=== PATIENT | female | born 1995 | race Caucasian/White ===

== ENCOUNTER 2024-07-04 23:55 | Inpatient (IN) | payer OTHER, SELFPAY ==
[2024-07-04 23:58] VITALS: PULSE 95; RESP 28; O2SAT 99
[2024-07-05] VITALS (10 sets, daily range): BP systolic 118–154; BP diastolic 63–87; PULSE 82–110; RESP 16–25; TEMP 36.5–37.2; O2SAT 92–100
--- NOTE | 2024-07-05 00:05 | PD.EDRME ---
Rapid Medical Screening Exam RME Arrival date/time: 07/04/24 23:55 Chief Complaint: Nausea/Vomiting/Diarrhea Vital signs: Vital Signs Pulse Rate 95 07/04/24 23:58 Respiratory Rate 28 H 07/04/24 23:58 Pulse Oximetry (%) 99 07/04/24 23:58 Oxygen Delivery Method Room Air 07/04/24 23:58 E Narrative: N/V started today, denies abdominal pain. Hx type 1 DM
--- NOTE | 2024-07-05 00:05 | PC.NURSE ---
Pt states she is anxious and has severe nausea. Due to Pt not staying still and continuing to vomiting I was unable to get a blood pressure and temperature at this time. Blood pressure was preformed on upper and lower arm as well as left and right calfs.
[2024-07-05] MEDS: ONDANSETRON INJ 2 MG/ML INJ 2 ML 4 MG IM (00:09)
[2024-07-05 00:35] LABS: Base Excess, Venous 1 (-3-3); O2 Saturation, Venous 91 % (96-97); PCO2, Venous 22 mmHg (36-56); PO2, Venous 49 mmHg (15-58); pH, Venous 7.57 (7.33-7.66)
[2024-07-05 00:40] LABS: Beta Hydroxybutyrate 1.1 mmol/L (<0.6)
[2024-07-05 00:45] LABS: Glucose Estimated Average 189 mg/dL (80-131); Hemoglobin A1C 8.2 % Hgb (4.8-6.0)
[2024-07-05 00:50] LABS: Alanine Aminotransferase 29 U/L (10-49); Albumin, Serum 4.7 gm/dL (3.5-5.0); Albumin/Globulin Ratio 1.8 (1.2-2.2); Alkaline Phosphatase 69 U/L (46-116); Anion Gap 14 (7-16); Aspartate Amino Transferase 29 U/L (0-34); BUN/Creatinine Ratio 14 Ratio (12-20); Blood Urea Nitrogen 11 mg/dL (9-23); Calcium 9.5 mg/dL (8.3-10.6); Calcium (Corrected) 9.5 mg/dL (8.5-10.1); Carbon Dioxide 20.5 mMol/L (20.0-31.0); Chloride 106 mMol/L (98-107); Creatinine (Component) 0.8 mg/dL (0.6-1.3); Globulin 2.6 gm/dL (2.3-3.5); Glucose 270 mg/dL (74-106); Lipase 25 U/L (12-53); Magnesium 1.7 mg/dL (1.6-2.6); Osmolality,Calculated 288 (275-295); Potassium 3.7 mMol/L (3.4-5.1); Sodium 140 mMol/L (136-145); Total Protein 7.3 gm/dL (5.7-8.2); eGFR > 60 See Note
[2024-07-05 00:57] LABS: Basophils # (Auto) 0.2 Thou/mm3 (0.0-0.2); Basophils % (Auto) 1 % (0-2.5); Eosinophils # (Auto) 0.1 Thou/mm3 (0.0-0.5); Eosinophils % (Auto) 1 % (0-10); Hematocrit 36.4 % (36.0-46.0); Hemoglobin 13.3 g/dL (12.0-16.0); Immature Granulocytes % (Auto) 0 % (0-0); Immature Granulocytes Auto 0.04 Thou/mm3 (0.00-0.00); Lymphocytes # (Auto) 2.4 Thou/mm3 (1.0-4.8); Lymphocytes % (Auto) 16 % (10-50); Mean Corpuscular HGB Conc 36.5 g/dl (31.0-37.0); Mean Corpuscular Volume 93 fL (80-100); Monocytes # (Auto) 0.9 Thou/mm3 (0.0-0.8); Monocytes % (Auto) 6 % (0-12); Neutrophils # (Auto) 10.9 Thou/mm3 (1.8-7.7); Neutrophils % (Auto) 76 % (37-80); Nucleated Red Blood Cell % 0 /100 WBC (0); Platelet Count 367 Thou/mm3 (140-440); RDW Standard Deviation 42.6 fL (36.4-46.3); Red Blood Count 3.91 Miln/mm3 (4.00-5.20); White Blood Count 14.5 Thou/mm3 (3.6-11.0)
--- NOTE | 2024-07-05 01:02 | PD.EDNV ---
Nausea/Vomit./Diarrhea-RME/HPI General Chief complaint: Nausea/Vomiting/Diarrhea Stated complaint: VOMITING Time Seen by Provider: 07/05/24 00:57 Arrival date/time: 07/04/24 23:55 RME / HPI RME / HPI Narrative: N/V started today, denies abdominal pain. Hx type [address] Phan?s Main ED Evaluation: 28yo female with a history of DMI presents to the ED for a chief complaint of N/V. Patient states she's had significant N/V tonight with brownish-red emesis. She denies any abdominal pain, back pain, fever, chills, diarrhea, chest pain, shortness of breath, dysuria, melena or any other associated symptoms. NKA. Related Data Home Medications ?Medication ?Instructions ?Recorded ?Confirmed Insulin Lispro,Human Rec.anlog ##15 12/19/15 (Humalog) insulin glargine 100 unit/mL (3 ##18 12/19/15 mL) subcutaneous pen (Lantus Solostar U-100 Insulin) Allergies Allergy/AdvReac Type Severity Reaction Status Date / Time NKA* Allergy Uncoded 12/19/15 15:17 Review of Systems Review of Systems Systems Reviewed: All systems reviewed, normal except as documented Past Medical History Social History SMOKING STATUS: Current some day smoker ED Exam Narrative Physical exam: GENERAL APPEARANCE: alert and oriented x 4, well-developed, well-nourished, no acute distress VITALS: All vitals were reviewed and the pulse ox is 99% on room air, which is normal according to my interpretation. HEENT: Normocephalic, atraumatic; pupils equal, round, reactive to light; EOMI; mucous membranes pink, moist; oropharynx clear NECK: Supple LUNGS: CTABL; no wheezes, no rales, no rhonchi HEART: Regular rate, regular rhythm; normal S1, S2; no murmurs ABDOMEN: non distended; soft, generalized [id number] tenderness, no guarding, no rebound BACK: no CVA tenderness EXTREMITIES: atraumatic; no edema NEUROLOGIC: awake; alert and oriented x4; cranial nerves II-XII grossly intact; no focal sensory or motor deficits PSYCHIATRIC: appropriate mood and affect SKIN: warm, dry, normal color; no rashes Course Quality Measures none Orders Category Date Time Status CT Screening NOW Care 07/05/24 02:15 Active EKG (ED ONLY) *Do not use* NOW Care 07/05/24 01:04 Completed Miscellaneous Nursing Order NOW Care 07/05/24 02:15 Active NPO STAT Care 07/05/24 04:[address] abdomen pelvis w con Stat Exams 07/05/24 02:15 Ordered EKG (ED Only) Stat Exams 07/05/24 01:04 Draft XR chest 1V portable Stat Exams 07/05/24 01:06 Taken Beta Hydroxybutyrate Stat Lab 07/05/24 00:13 Completed CBC Stat Lab 07/05/24 00:13 Completed CMP [Comprehensive Metabolic Panel] Stat Lab 07/05/24 00:13 Completed Drug Screen,Urine Stat Lab 07/05/24 03:46 Ordered HCG Qualitative,Urine Stat Lab 07/05/24 00:04 Ordered HCG,Qualitative Serum Stat Lab 07/05/24 05:12 Ordered Hemoglobin A1C [Glycohemoglobin w (eAG)] Stat Lab 07/05/24 00:13 Completed Lipase Stat Lab 07/05/24 00:13 Completed Magnesium Stat Lab 07/05/24 00:13 Completed UA [Urinalysis] Stat Lab 07/05/24 00:04 Ordered VBG [Venous Blood Gas] Stat Lab 07/05/24 00:13 Completed Haloperidol Lactate [Haldol Inj] Med 07/05/24 01:03 Discontinued 2.5 mg IV Q6HR PRN Haloperidol Lactate [Haldol Inj] Med 07/05/24 03:04 Discontinued 2.5 mg IV X1 ONE Haloperidol Lactate [Haldol Inj] Med 07/05/24 03:07 Discontinued 2.5 mg IV X1 ONE LORazepam [Ativan Inj] Med 07/05/24 01:03 Discontinued 2 mg IVP X1 ONE Ondansetron Inj [Zofran Inj] Med 07/05/24 00:03 Discontinued 4 mg IM X1 ONE Pantoprazole Inj [Protonix Inj] Med 07/05/24 03:58 Discontinued 80 mg IVP X1 ONE Pantoprazole/Ns 80Mg IV Premix [Protonix/NS 80mg IV Med 07/05/24 04:15 Active Premix] 80 mg in 100 ml IV Q10H Pantoprazole/Ns 80Mg IV Premix [Protonix/NS 80mg IV Med 07/05/24 14:15 Pending Premix] 80 mg in 100 ml IV Q10H Sodium Chloride 0.9% 1000 ml [Ns] 1,000 ml Med 07/05/24 02:16 Discontinued IV 999 mls/hr Sodium Chloride 0.9% 1000 ml [Ns] 1,000 ml Med 07/05/24 02:16 Discontinued IV 999 mls/hr Vital Signs Vital signs: Vital Signs Pulse Rate 95 07/04/24 23:58 Respiratory Rate 28 H 07/04/24 23:58 Pulse Oximetry (%) 99 07/04/24 23:58 Oxygen Delivery Method Room Air 07/04/24 23:58 Nausea/Vomiting/Diarrhea MDM Narrative MDM Narrative:: Scribe Attestation: 07/05/24 Jolene Quiroz am scribing for and in the presence of Dr. Phan. Gastric occult is positive. Patient data External records reviewed:: [facility] previous records (Per chart review, patient has no previous ED visits or admissions to this facility.) Clinical information provided by:: patient Social determinants that could affect healthcare access:: none Patient has the following chronic illnesses:: DM How is presenting disease/condition affected by chronic disease/condition?: caused by Evaluation data The following diagnostics were reviewed and interpreted by me:: lab results, radiology exam(s) and EKG tracing(s) Lab and/or radiology exams considered but not ordered:: none Interpretation Summary: WBC 14.5, VBG shows a low CO2 of 22, Glucose is 270, Magnesium 1.7, Lipase is normal, Beta Hydroxybutyrate is 1.1, according to my interpretation. CXR shows normal cardiac silhouette, normal sharp diaphragmatic edge, no infiltrates, normal costophrenic angles, according to my interpretation. EKG done at 0155, NSR, rate of 60, normal axis, no ectopy, no acute ischemia, according to my interpretation. Medications / Prescriptions Medications / Prescriptions considered but not ordered:: none Medication administrations:: Medication Administration History Pantoprazole Sodium (Protonix/Ns 80mg Iv Premix) 80 mg in 100 mls @ 10 mls/hr IV Q10H NASIR Stop: 07/08/24 02:14 Pantoprazole Sodium (Protonix/Ns 80mg Iv Premix) 80 mg in 100 mls @ 10 mls/hr IV Q10H NASIR Stop: 07/05/24 14:14 Last Admin: 07/05/24 04:24 Dose: 10 mls/hr Documented By: KRISTEN Discontinued Medications Haloperidol Lactate (Haloperidol Lact Inj 5 Mg/Ml Vial) 2.5 mg IV Q6HR PRN PRN Reason: Intractable vomiting Stop: 07/10/24 01:02 Last Admin: 07/05/24 01:12 Dose: 2.5 mg Documented By: KRISTEN Haloperidol Lactate (Haloperidol Lact Inj 5 Mg/Ml Vial) 2.5 mg IV X1 ONE Stop: 07/05/24 03:05 Last Admin: 07/05/24 03:18 Dose: 2.5 mg Documented By: VIRIDIANA Haloperidol Lactate (Haloperidol Lact Inj 5 Mg/Ml Vial) 2.5 mg IV X1 ONE Stop: 07/05/24 03:08 Last Admin: 07/05/24 03:10 Dose: Not Given Documented By: VIRIDIANA Non-Admin Reason: Duplicate Medication on eMAR Sodium Chloride (Ns) 1,000 mls @ 999 mls/hr IV .Q1H1M ONE Stop: 07/05/24 03:16 Last Infusion: 07/05/24 04:37 Dose: Infused Documented By: Admin: 07/05/24 02:58 Dose: 999 mls/hr Documented By: KRISTEN Sodium Chloride (Ns) 1,000 mls @ 999 mls/hr IV .Q1H1M ONE Stop: 07/05/24 03:16 Last Infusion: 07/05/24 04:37 Dose: Infused Documented By: Admin: 07/05/24 02:59 Dose: 999 mls/hr Documented By: KRISTEN Lorazepam (Lorazepam 2 Mg/Ml Vial) 2 mg IVP X1 ONE Stop: 07/05/24 01:04 Last Admin: 07/05/24 01:12 Dose: 2 mg Documented By: KRISTEN Ondansetron HCl (Ondansetron Inj 2 Mg/Ml Inj 2 Ml) 4 mg IM X1 ONE; Protocol Stop: 07/05/24 00:04 Last Admin: 07/05/24 00:09 Dose: 4 mg Documented By: DAVID Pantoprazole Sodium (Pantoprazole Inj 40 Mg Vial) 80 mg IVP X1 ONE Stop: 07/05/24 03:59 Last Admin: 07/05/24 04:24 Dose: 80 mg Documented By: KRISTEN see above Consultations Consultation(s) initiated? (list below): No Diagnosis Nausea Differential Diagnosis: other (PUD, gastritis, gastroparesis) Most likely diagnosis given after review of the tests above:: hematemesis Admission Indicated Admission indicated?: not indicated Admission Request Was there a request for admission?: No Disposition Plan Disposition Plan: other (specify) (Signed out to Dr. Oro at [address] abdomen pelvis.) Discharge Plan Prescriptions/Referrals Prescriptions/Med Rec: No Action insulin glargine [Lantus Solostar U-100 Insulin] 3 ML insulin pen Qty: 18 Insulin Lispro,Human Rec.anlog (Humalog) 100 U/ML INSULN.PEN Qty: 15 Referrals: Pat Obregon MD [Primary Care Provider] - In 1 week Problem List Clinical Impression: Hematemesis Patient/Caregiver Discharge Instructions Print Language: [place] Islander
--- NOTE | 2024-07-05 01:04 | EKG_ITS ---
[facility] Test Date: 2024-07-05 Pat Name: ADE BOWERS Department: Room: - Gender: Female Lathe Set Up Person: : 1995 Requested By: Kan Garcia Order Number: [id number] Reading MD: Kan Garcia Measurements Intervals [place] Rate: 60 P: 45 NM: 143 QRS: 65 QRSD: 102 T: 44 QT: 427 QTc: 427 Interpretive Statements SINUS RHYTHM WITH MARKED SINUS ARRHYTHMIA No previous ECG available for comparison /store/S0/[id number]/ecg/[id number].pdf
--- NOTE | 2024-07-05 01:06 | XR_ITS ---
Examination: AP chest single view TECHNIQUE: AP portable upright chest single view Date and time: July 05, 2024 0139 hours INDICATIONS: Nausea vomiting tonight FINDINGS: No aspiration pneumonia. Normal heart size Intact osseous structures IMPRESSION: Negative for aspiration pneumonia
[2024-07-05] MEDS: LORazepam 2 MG/ML VIAL IVP (01:12)
[2024-07-05] MEDS: HALOPERIDOL LACT INJ 5 MG/ML VIAL 2.5 MG IV ×2 (01:12→03:18)
--- NOTE | 2024-07-05 02:15 | XR_ITS ---
Examination: CT abdomen with intravenous contrast CT pelvis with intravenous contrast 2-D coronal reconstructions 2-D sagittal reconstructions Date and time of exam:July 05, 2024 0727 hours Comparison February 19, 2014 INDICATIONS: Mid abdominal pain and vomiting today, history acute pancreatitis. CTDI: vol (mGy) 10.6 DLP: (mGycm) 598 Technique: Multiple axial sections of the abdomen and pelvis have been obtained. 64 slice high-resolution scanner used. 3 mm axial sections have been obtained, post intravenous injection 60 cc Isovue-370 2-D sagittal, coronal reconstructions obtained. Low dose protocols were performed. One or more of the following dose reduction techniques were used; automated exposure control, adjustment of the mA and/or KV according to patient size, use of iterative reconstruction technique. Findings: No focal liver or splenic lesions No gallstones No pancreatic mass or peripancreatic edema Normal adrenal glands No renal or ureteral calculi, no hydronephrosis Aorta normal size Normal appendix No bladder mass Bilateral ovarian follicular cysts, the largest on the left side 16 mm No uterine mass Intact osseous structures Mild diffuse wall thickening involving the colon IMPRESSION: Mild diffuse nonspecific colitis pattern Consider pelvic sonography to confirm benign bilateral ovarian follicular cysts
[2024-07-05] MEDS: SODIUM CHLORIDE 0.9% 1000 ML 1,000 ML 999 ML IV ×3 (02:58→09:49)
[2024-07-05] MEDS: PANTOPRAZOLE/NS 80MG IV PREMIX 80 MG/100 ML BAG 10 MG IV ×2 (04:24→16:48)
[2024-07-05] MEDS: PANTOPRAZOLE INJ 40 MG VIAL 80 MG IVP (04:24)
[2024-07-05 06:26] LABS: HCG,Qualitative Serum Negative
[2024-07-05 06:30] LABS: Collection Type, Urine Clean Catch
--- NOTE | 2024-07-05 06:38 | EDNOTE_ITS ---
Emergency Room Addendum <Ro James - Last Filed: 07/05/24 09:16> Addendum Narrative: 0600: Care assumed from Dr. Phan, the previous shift emergency physician. Past medical, surgical, social and family history reviewed. Vitals and home medications reviewed. I will assume the care of the patient at this time, pending abdomen/pelvis CT and final disposition. Please refer to the emergency department record for history and examination from initial visit.? Physical exam by me shows patient under no acute distress at this time, she was sleeping. 28 year old female with no past medical history presents to the Emergency Department with complaint of abdominal pain, nausea, and vomiting with blood. <Moris Oro MD - Last Filed: 07/05/24 09:18> Addendum Narrative: 0600: Care assumed from Dr. Phan, the previous shift emergency physician. Past medical, surgical, social and family history reviewed. Vitals and home medications reviewed. I will assume the care of the patient at this time, pending abdomen/pelvis CT and final disposition. Please refer to the emergency department record for history and examination from initial visit.? Physical exam by me shows patient under no acute distress at this time, she was sleeping. 28 year old female with no past medical history presents to the Emergency Department with complaint of abdominal pain, nausea, and vomiting with blood. Patient had intractable nausea and vomiting and was feeling better and tried some ice chips and she immediately started vomiting again. There is reports of coffee-ground emesis prior to arrival and per staff earlier. Uncertain if this is a Mary-Hopkins but Dr. Tu JAMA was called and he will be consulting occult hospitalist admit for intractable nausea and vomiting. No patient's white count is 14.5 there is a respiratory alkalosis. Glucose is 270 be beta-hydroxybutyrate is slightly elevated at 1.1. She is not . Lipase is negative urine analysis essentially unremarkable and urine drug screen came back positive for cocaine and marijuana Because of the intractable nausea vomiting and the coffee-ground emesis patient is to be admitted. I spoke with the hospitalist Dr. Salgado and they will come down and see the patient for admission Results <Ro James - Last Filed: 07/05/24 09:16> Objective Laboratory: Laboratory Last Values WBC 14.5 Thou/mm3 (3.6-11.0) H 07/05/24 00:13 RBC 3.91 Miln/mm3 (4.00-5.20) L 07/05/24 00:13 Hgb 13.3 g/dL (12.0-16.0) 07/05/24 00:13 Hct 36.4 % (36.0-46.0) 07/05/24 00:13 MCV 93 fL (80-100) 07/05/24 00:13 MCH 34.0 pg (25.0-35.0) 07/05/24 00:13 MCHC 36.5 g/dl (31.0-37.0) 07/05/24 00:13 RDW Std Deviation 42.6 fL (36.4-46.3) 07/05/24 00:13 Plt Count 367 Thou/mm3 (140-440) 07/05/24 00:13 Neut % (Auto) 76 % (37-80) 07/05/24 00:13 Lymph % (Auto) 16 % (10-50) 07/05/24 00:13 Gillespie % (Auto) 6 % (0-12) 07/05/24 00:13 Eos % (Auto) 1 % (0-10) 07/05/24 00:13 Baso % (Auto) 1 % (0-2.5) 07/05/24 00:13 Neut # (Auto) 10.9 Thou/mm3 (1.8-7.7) H 07/05/24 00:13 Lymph # (Auto) 2.4 Thou/mm3 (1.0-4.8) 07/05/24 00:13 Gillespie # (Auto) 0.9 Thou/mm3 (0.0-0.8) H 07/05/24 00:13 Eos # (Auto) 0.1 Thou/mm3 (0.0-0.5) 07/05/24 00:13 Baso # (Auto) 0.2 Thou/mm3 (0.0-0.2) 07/05/24 00:13 Immature Gran # (Auto) 0.04 Thou/mm3 (0.00-0.00) H 07/05/24 00:13 Absolute Nucleated RBC 0.00 Thou/mm3 (0.00-0.00) 07/05/24 00:13 Immature Gran % 0 % (0-0) 07/05/24 00:13 Nucleated RBC % 0 /100 WBC (0) 07/05/24 00:13 VBG pH 7.57 (7.33-7.66) 07/05/24 00:13 VBG pCO2 22 mmHg (36-56) L 07/05/24 00:13 VBG pO2 49 mmHg (15-58) 07/05/24 00:13 VBG O2 Sat (Partha) 91 % (96-97) L 07/05/24 00:13 VBG Base Excess 1 (-3-3) 07/05/24 00:13 Sodium 140 mMol/L (136-145) 07/05/24 00:13 Potassium 3.7 mMol/L (3.4-5.1) 07/05/24 00:13 Chloride 106 mMol/L (98-107) 07/05/24 00:13 Carbon Dioxide 20.5 mMol/L (20.0-31.0) 07/05/24 00:13 Anion Gap 14 (7-16) 07/05/24 00:13 BUN 11 mg/dL (9-23) 07/05/24 00:13 Creatinine 0.8 mg/dL (0.6-1.3) 07/05/24 00:13 Estim Creat Clear Calc Not Performed. 07/05/24 00:13 eGFR > 60 See Note (60-) 07/05/24 00:13 BUN/Creatinine Ratio 14 Ratio (12-20) 07/05/24 00:13 Glucose 270 mg/dL (74-106) H 07/05/24 00:[address] Glu mg/dL 189 mg/dL (80-131) H 07/05/24 00:13 Hemoglobin A1c 8.2 % Hgb (4.8-6.0) H 07/05/24 00:13 Calculated Osmolality 288 (275-295) 07/05/24 00:13 Calcium 9.5 mg/dL (8.3-10.6) 07/05/24 00:13 Corrected Calcium 9.5 mg/dL (8.5-10.1) 07/05/24 00:13 Magnesium 1.7 mg/dL (1.6-2.6) 07/05/24 00:13 Total Bilirubin 1.0 mg/dL (0.3-1.2) 07/05/24 00:13 AST 29 U/L (0-34) 07/05/24 00:13 ALT 29 U/L (10-49) 07/05/24 00:13 Alkaline Phosphatase 69 U/L (46-116) 07/05/24 00:13 Total Protein 7.3 gm/dL (5.7-8.2) 07/05/24 00:13 Albumin 4.7 gm/dL (3.5-5.0) 07/05/24 00:13 Globulin 2.6 gm/dL (2.3-3.5) 07/05/24 00:13 Albumin/Globulin Ratio 1.8 (1.2-2.2) 07/05/24 00:13 Lipase 25 U/L (12-53) 07/05/24 00:13 Beta-Hydroxybutyrate/Acetoacetate 1.1 mmol/L (<0.6) H 07/05/24 00:13 HCG, Qual Negative 07/05/24 05:48 Urine HCG, Qual Negative 07/05/24 06:25 Urine Opiates Screen Negative (Negative) 07/05/24 06:25 Urine Fentanyl Screen Negative (Negative) 07/05/24 06:25 Ur Barbiturates Screen Negative (Negative) 07/05/24 06:25 U Amphetamin/Meth Scrn Negative (Negative) 07/05/24 06:25 U Benzodiazepines Scrn Negative (Negative) 07/05/24 06:25 U Cocaine Metab Screen Positive (Negative) A 07/05/24 06:25 U Marijuana (THC) Screen Positive (Negative) A 07/05/24 06:25 Imaging: Procedure(s): CT abdomen pelvis w con Accession Number(s): [id number] cc: Pat Obregon MD; Eugenio Sullivan MD; Kan Phan MD~ Examination: CT abdomen with intravenous contrast CT pelvis with intravenous contrast 2-D coronal reconstructions 2-D sagittal reconstructions Date and time of exam:July 05, 2024 0727 hours Comparison February 19, 2014 INDICATIONS: Mid abdominal pain and vomiting today, history acute pancreatitis. CTDI: vol (mGy) 10.6 DLP: (mGycm) 598 Technique: Multiple axial sections of the abdomen and pelvis have been obtained. 64 slice high-resolution scanner used. 3 mm axial sections have been obtained, post intravenous injection 60 cc Isovue-370 2-D sagittal, coronal reconstructions obtained. Low dose protocols were performed. One or more of the following dose reduction techniques were used; automated exposure control, adjustment of the mA and/or KV according to patient size, use of iterative reconstruction technique. Findings: No focal liver or splenic lesions No gallstones No pancreatic mass or peripancreatic edema Normal adrenal glands No renal or ureteral calculi, no hydronephrosis Aorta normal size Normal appendix No bladder mass Bilateral ovarian follicular cysts, the largest on the left side 16 mm No uterine mass Intact osseous structures Mild diffuse wall thickening involving the colon IMPRESSION: Mild diffuse nonspecific colitis pattern Consider pelvic sonography to confirm benign bilateral ovarian follicular cysts Dictated By: Eugenio Sullivan MD Procedure(s): XR chest 1V portable Accession Number(s): [id number] cc: Pat Obregon MD; Eugenio Sullivan MD; Kan Phan MD~ Examination: AP chest single view TECHNIQUE: AP portable upright chest single view Date and time: July 05, 2024 0139 hours INDICATIONS: Nausea vomiting tonight FINDINGS: No aspiration pneumonia. Normal heart size Intact osseous structures IMPRESSION: Negative for aspiration pneumonia Dictated By: Eugenio Sullivan MD <Moris Oro MD - Last Filed: 07/05/24 09:18> Objective Laboratory: Laboratory Last Values WBC 14.5 Thou/mm3 (3.6-11.0) H 07/05/24 00:13 RBC 3.91 Miln/mm3 (4.00-5.20) L 07/05/24 00:13 Hgb 13.3 g/dL (12.0-16.0) 07/05/24 00:13 Hct 36.4 % (36.0-46.0) 07/05/24 00:13 MCV 93 fL (80-100) 07/05/24 00:13 MCH 34.0 pg (25.0-35.0) 07/05/24 00:13 MCHC 36.5 g/dl (31.0-37.0) 07/05/24 00:13 RDW Std Deviation 42.6 fL (36.4-46.3) 07/05/24 00:13 Plt Count 367 Thou/mm3 (140-440) 07/05/24 00:13 Neut % (Auto) 76 % (37-80) 07/05/24 00:13 Lymph % (Auto) 16 % (10-50) 07/05/24 00:13 Gillespie % (Auto) 6 % (0-12) 07/05/24 00:13 Eos % (Auto) 1 % (0-10) 07/05/24 00:13 Baso % (Auto) 1 % (0-2.5) 07/05/24 00:13 Neut # (Auto) 10.9 Thou/mm3 (1.8-7.7) H 07/05/24 00:13 Lymph # (Auto) 2.4 Thou/mm3 (1.0-4.8) 07/05/24 00:13 Gillespie # (Auto) 0.9 Thou/mm3 (0.0-0.8) H 07/05/24 00:13 Eos # (Auto) 0.1 Thou/mm3 (0.0-0.5) 07/05/24 00:13 Baso # (Auto) 0.2 Thou/mm3 (0.0-0.2) 07/05/24 00:13 Immature Gran # (Auto) 0.04 Thou/mm3 (0.00-0.00) H 07/05/24 00:13 Absolute Nucleated RBC 0.00 Thou/mm3 (0.00-0.00) 07/05/24 00:13 Immature Gran % 0 % (0-0) 07/05/24 00:13 Nucleated RBC % 0 /100 WBC (0) 07/05/24 00:13 VBG pH 7.57 (7.33-7.66) 07/05/24 00:13 VBG pCO2 22 mmHg (36-56) L 07/05/24 00:13 VBG pO2 49 mmHg (15-58) 07/05/24 00:13 VBG O2 Sat (Partha) 91 % (96-97) L 07/05/24 00:13 VBG Base Excess 1 (-3-3) 07/05/24 00:13 Sodium 140 mMol/L (136-145) 07/05/24 00:13 Potassium 3.7 mMol/L (3.4-5.1) 07/05/24 00:13 Chloride 106 mMol/L (98-107) 07/05/24 00:13 Carbon Dioxide 20.5 mMol/L (20.0-31.0) 07/05/24 00:13 Anion Gap 14 (7-16) 07/05/24 00:13 BUN 11 mg/dL (9-23) 07/05/24 00:13 Creatinine 0.8 mg/dL (0.6-1.3) 07/05/24 00:13 Estim Creat Clear Calc Not Performed. 07/05/24 00:13 eGFR > 60 See Note (60-) 07/05/24 00:13 BUN/Creatinine Ratio 14 Ratio (12-20) 07/05/24 00:13 Glucose 270 mg/dL (74-106) H 07/05/24 00:[address] Glu mg/dL 189 mg/dL (80-131) H 07/05/24 00:13 Hemoglobin A1c 8.2 % Hgb (4.8-6.0) H 07/05/24 00:13 Calculated Osmolality 288 (275-295) 07/05/24 00:13 Calcium 9.5 mg/dL (8.3-10.6) 07/05/24 00:13 Corrected Calcium 9.5 mg/dL (8.5-10.1) 07/05/24 00:13 Magnesium 1.7 mg/dL (1.6-2.6) 07/05/24 00:13 Total Bilirubin 1.0 mg/dL (0.3-1.2) 07/05/24 00:13 AST 29 U/L (0-34) 07/05/24 00:13 ALT 29 U/L (10-49) 07/05/24 00:13 Alkaline Phosphatase 69 U/L (46-116) 07/05/24 00:13 Total Protein 7.3 gm/dL (5.7-8.2) 07/05/24 00:13 Albumin 4.7 gm/dL (3.5-5.0) 07/05/24 00:13 Globulin 2.6 gm/dL (2.3-3.5) 07/05/24 00:13 Albumin/Globulin Ratio 1.8 (1.2-2.2) 07/05/24 00:13 Lipase 25 U/L (12-53) 07/05/24 00:13 Beta-Hydroxybutyrate/Acetoacetate 1.1 mmol/L (<0.6) H 07/05/24 00:13 HCG, Qual Negative 07/05/24 05:48 Urine HCG, Qual Negative 07/05/24 06:25 Urine Opiates Screen Negative (Negative) 07/05/24 06:25 Urine Fentanyl Screen Negative (Negative) 07/05/24 06:25 Ur Barbiturates Screen Negative (Negative) 07/05/24 06:25 U Amphetamin/Meth Scrn Negative (Negative) 07/05/24 06:25 U Benzodiazepines Scrn Negative (Negative) 07/05/24 06:25 U Cocaine Metab Screen Positive (Negative) A 07/05/24 06:25 U Marijuana (THC) Screen Positive (Negative) A 07/05/24 06:25
[2024-07-05 06:49] LABS: HCG Qualitative,Urine Negative
[2024-07-05 06:54] LABS: Amphetamine/Methamp Scrn,U Negative (Negative); Barbiturate Screen,Urine Negative (Negative); Benzodiazepines Screen,Urine Negative (Negative); Benzoylecgonine Screen, Ur Positive (Negative); Fentanyl Screen,Urine Negative (Negative); Opiate Screen,Urine Negative (Negative); THC Screen,Urine Positive (Negative)
[2024-07-05 07:37] LABS: Bilirubin,Urine Negative (Negative); Blood,Urine Negative (Negative); Clarity,Urine Clear (Clear/Hazy); Color,Urine Lt-Yellow (Lt Yel-Yel); Glucose, Urine 4+ (Negative); Ketones,Urine 3+ (Negative); Leukocyte Esterase,Urine Negative (Negative); Nitrite,Urine Negative (Negative); Protein,Urine Negative (Neg - Trace); RBC,Urine 2 /hpf (0-3); Specific Gravity,Urine 1.019 (1.001-1.035); Squamous Epithelial Cell,Urine < 1 /hpf (0-5); Urobilinogen,Urine Negative mg/dL (0.0-1.0); WBC,Urine < 1 /hpf (0-5)
[2024-07-05] MEDS: ONDANSETRON INJ 2 MG/ML INJ 2 ML 4 MG IV (09:48)
--- NOTE | 2024-07-05 09:55 | ESHP_ITS ---
<Statement entered by Josh Lazar MD - 07/15/24 14:59> I reviewed above note and agree with findings and plans. I have also personally examined the patient with medicine team and went over assessment and plan with medical team including help desk internship and resident physician. Documentation for date of: 07/05/24 HPI History of Present Illness Chief complaint: vomiting History of present illness: 28-year-old female with past medical history of type 1 diabetes who presented to the ED due to nausea vomiting. Onset of symptoms 1 day ago states 1 episode contained coffee ground rest of vomiting episodes seem to be greenish bile. Patient is every day marijuana user. Of note patient is from [facility] and came here for doctors appointments and visiting. Denies fever, chills, shortness of breath, chest pain, abdominal pain, recent sick contacts. Rest of history limited as patient is actively vomiting. ED course: ED vitals: BP 127/85, HR 95, RR 28, O2 sat 99% on room air ED labs: Leukocytosis, glucose 270, A1c 8.2, beta hydroxybutyrate 1.1, negative test, UA shows plus for glucose, +3 ketones, U tox shows positive for cocaine, marijuana, CT abdomen pelvis shows Mild diffuse nonspecific colitis pattern, Consider pelvic sonography to confirm benign bilateral ovarian follicular cysts PMHx: as above SxHx: unknown Social Hx: former cigarette smoker, drinks socially, denies illicit substances, however uses THC daily Review of Systems Review of Systems Systems Reviewed: All systems reviewed, normal except as documented Narrative Review of Systems: All 12 systems reviewed and are normal unless stated in HPI Exam Vital Signs Temp Pulse Resp BP Pulse Ox O2 Del Method O2 Flow Rate 98.9 F 99 16 118/63 96 Room Air 2 07/05/24 08:03 07/05/24 08:03 07/05/24 08:03 07/05/24 08:03 07/05/24 08:03 07/05/24 08:03 07/05/24 06:49 Narrative Exam Physical Exam GENERAL: AAOx3, acute distress due to vomiting HEENT: Moist mucosa. Eyes open, symmetrical, & clear CARDIO: Heart RRR, no obvious murmurs PULM: No noted coughing/dyspnea CTA B/L, no R/W/R GI: Abdomen soft, nondistended, pain on palpation. BS+ SKIN/MSK/EXT: No wounds/rashes/edema/amputations, no pain on palpation. Pedal pulses present B/L NEURO: AAOx3, no focal neuro deficits, able to move all 4 extremities Results: Labs 07/05/24 00:13 07/05/24 00:13 Labs: Short CBC 07/05/24 Range/Units 00:13 WBC 14.5 H (3.6-11.0) Thou/mm3 Hgb 13.3 (12.0-16.0) g/dL Hct 36.4 (36.0-46.0) % Plt Count 367 (140-440) Thou/mm3 BMP 07/05/24 00:13 Sodium 140 Potassium 3.7 Chloride 106 Carbon Dioxide 20.5 BUN 11 Creatinine 0.8 Glucose 270 H Calcium 9.5 Liver Function 07/05/24 Range/Units 00:13 Total Bilirubin 1.0 (0.3-1.2) mg/dL AST 29 (0-34) U/L ALT 29 (10-49) U/L Alkaline Phosphatase 69 (46-116) U/L Albumin 4.7 (3.5-5.0) gm/dL Urine 07/05/24 Range/Units 06:25 Urine Color Lt-Yellow (Lt Yel-Yel) Urine Clarity Clear (Clear/Hazy) Urine pH 7.0 (5.0-7.0) Ur Specific [place] 1.019 (1.001-1.035) Urine Protein Negative (Neg - Trace) Urine Glucose (UA) 4+ A (Negative) ABG Interpretation ABG results: 07/05/24 00:13 VBG pH 7.57 VBG pCO2 22 L VBG pO2 49 VBG Base Excess 1 Quality Measures Quality Measures none Medications Home Medications and Allergies Home Medications ?Medication ?Instructions ?Recorded ?Confirmed ?Type clonazepam 0.5 mg tablet 0.5 mg PO HS 07/05/24 History flash glucose sensor (FreeStyle 07/05/24 07/05/24 His tory Jon 2 Sensor kit) insulin lispro 100 unit/mL 100 unit subcut PRN 5 07/05/24 History subcutaneous pen (Humalog KwikPen (U-100) Insulin) insulin pump cart,cont inf,BT 07/05/24 07/05/24 Histo ry (Omnipod Dash Pods (Gen 4) subcutaneous cartridge) sertraline 50 mg tablet 50 mg PO QDAY 07/05/2407/05 History Allergies Allergy/AdvReac Type Severity Reaction Status Date / Time NKA* Allergy Uncoded 12/19/15 15:17 Visit Medications Pantoprazole Sodium (Protonix/Ns 80mg Iv Premix) 80 mg in 100 mls @ 10 mls/hr IV Q10H NASIR Stop: 07/08/24 02:14 Pantoprazole Sodium (Protonix/Ns 80mg Iv Premix) 80 mg in 100 mls @ 10 mls/hr IV Q10H NASIR Stop: 07/05/24 14:14 Last Admin: 07/05/24 04:24 Dose: 10 mls/hr Sodium Chloride (Ns) 1,000 mls @ 999 mls/hr IV .Q1H1M ONE Stop: 07/05/24 10:33 Last Admin: 07/05/24 09:49 Dose: 999 mls/hr Discontinued Medications Haloperidol Lactate (Haloperidol Lact Inj 5 Mg/Ml Vial) 2.5 mg IV Q6HR PRN PRN Reason: Intractable vomiting Stop: 07/10/24 01:02 Last Admin: 07/05/24 01:12 Dose: 2.5 mg Haloperidol Lactate (Haloperidol Lact Inj 5 Mg/Ml Vial) 2.5 mg IV X1 ONE Stop: 07/05/24 03:05 Last Admin: 07/05/24 03:18 Dose: 2.5 mg Haloperidol Lactate (Haloperidol Lact Inj 5 Mg/Ml Vial) 2.5 mg IV X1 ONE Stop: 07/05/24 03:08 Last Admin: 07/05/24 03:10 Dose: Not Given Sodium Chloride (Ns) 1,000 mls @ 999 mls/hr IV .Q1H1M ONE Stop: 07/05/24 03:16 Last Infusion: 07/05/24 04:37 Dose: Infused Sodium Chloride (Ns) 1,000 mls @ 999 mls/hr IV .Q1H1M ONE Stop: 07/05/24 03:16 Last Infusion: 07/05/24 04:37 Dose: Infused Lorazepam (Lorazepam 2 Mg/Ml Vial) 2 mg IVP X1 ONE Stop: 07/05/24 01:04 Last Admin: 07/05/24 01:12 Dose: 2 mg Ondansetron HCl (Ondansetron Inj 2 Mg/Ml Inj 2 Ml) 4 mg IM X1 ONE; Protocol Stop: 07/05/24 00:04 Last Admin: 07/05/24 00:09 Dose: 4 mg Ondansetron HCl (Ondansetron Inj 2 Mg/Ml Inj 2 Ml) 4 mg IV X1 ONE; Protocol Stop: 07/05/24 09:34 Last Admin: 07/05/24 09:48 Dose: 4 mg Pantoprazole Sodium (Pantoprazole Inj 40 Mg Vial) 80 mg IVP X1 ONE Stop: 07/05/24 03:59 Last Admin: 07/05/24 04:24 Dose: 80 mg Assessment & Plan Plan 28-year-old female with past medical history of type 1 diabetes who presents to the ED with vomiting. Patient was admitted for intractable vomiting. #? Coffee-ground emesis #Intractable nausea and vomiting #?Cyclic vomiting syndrome Patient symptom onset was about 1 day ago, patient reports 1 episode of coffee- ground emesis followed by green bilious vomiting. Patient does use THC frequently possible etiology can include cyclic vomiting syndrome with possible tear due to continous retching Zomonty reglan did not work continues to vomit ? Benadryl + promethazine ? Scopolamine patch ? Monitor serial EKGs to monitor QTc prolongation ? Pantoprazole drip ? NPO for possible GI intervention ? IVFs running ? GI consulted, appreciate recommendations #Diabetes mellitus type 1 Last A1c: 8.2, per patient she uses 10-15 units of insulin a day on an insulin pump patient is using her own pumps insulin, patient refused to turn off ? SSI ? Hypoglycemia protocol in place #Polysubstance use patients utox is positive for cocaine and THC - consider social worker #Bilateral ovarian follicular cysts, the largest on the left side 16 mm recommended to follow up with pelvic US - follow up as outpatient Health Maintenance: Disposition: MedSurg Fluids: NS Feeding: N.p.o. Thrombo prophylaxis: SCDs Gastric Ulcer prophylaxis: Pantoprazole CODE STATUS: Full code Case discussed with my senior Dr. George and my attending Dr. Nagi Johnson MD PGY-1 LPatient examined and case discussed with the team including attending physician. Note reviewed, I agree with the care plan as documented. Ms Melendez is a 28 year old female admitted for intractable vomiting with hematemesis. Likely cyclical vomiting syndrome due to THC use, UTox screen positive for marijuana. Started on Benadryl + Promethazine, added scopolamine patch for added control.Will hold off of reglan, zofran and other QTc prolonging agents. GI consulted for UGIB, appreciate recommendations. Will keep NPO w/ meds until EGD. Please refer to the note above for further details. - Tushar George MD, PGY 2 Disclaimer: The document may contain phonetic/typographic errors due to voice recognition software. These errors are purely due to imperfections in the software program and should not be misconstrued in any way to compromise the substance of the patient's medical care during this visit. L
[2024-07-05] MEDS: METOCLOPRAMIDE INJ 5 MG/ML VIAL 2 ML 10 MG IVP (11:14)
[2024-07-05] MEDS: SCOPOLAMINE 1 MG TDSY TOP (11:17)
--- NOTE | 2024-07-05 12:06 | PC.NURSE ---
PT CONTINUES TO HAVE NAUSEA AFTER REGLAN AND SCOP PATCH. THIS RN CALLED PROVIDER WHO GAVE VERBAL TO ORDER COMPAZINE IVP. WILL ADMINISTER ONCE APPROVED BY PHARMACY. PT UPDATED.
--- NOTE | 2024-07-05 12:21 | PC.NURSE ---
WENT IN TO UPDATE PT PHARMACY NEEDS TO CLARIFY ORDER FOR NAUSEA MEDICATION. PT SITTING ON COMMODE.
[2024-07-05] MEDS: SODIUM CHLORIDE 0.9% 1000 ML 1,000 ML 100 ML IV ×2 (12:44→23:54)
[2024-07-05] MEDS: DiphenhydrAMINE INJ 50 MG/ML VIAL 25 MG IVP (14:41)
[2024-07-05] MEDS: INSULIN LISPRO (AdmeLOG) 1 UNIT/0.01 ML UNIT SC (17:43)
--- NOTE | 2024-07-05 18:20 | ESCONSULT_ITS ---
HPI Data of Consult Requesting Physician: Josh Lazar MD Primary Care Provider: Pat Obregon MD Consult Narrative Reason for consult: nausea vomiting coffee ground hematemesis History of present illness: 28 years of female presented to the emergency room with nausea vomiting and one of the vomit had coffee-ground emesis Patient is a daily marijuana user Her urine toxicology is positive for cocaine and THC Patient has a history of underlying diabetes mellitus type 1 And her beta hydroxy was 1.1 with a glucose of 270 Baseline hemoglobin 13.3 and 36.[address] scan of the abdomen pelvis done which showed diffuse colitis benign follicular ovarian cyst and a pelvic ultrasound was recommended cc:: cc: Josh Lazar MD Review of Systems Review of Systems Systems Reviewed: All systems reviewed, normal except as documented Past Medical History Surgical History OTHER SURGICAL HX: As in the history present illness Meds Home Medications and Allergies Home Medications ?Medication ?Instructions ?Recorded ?Confirmed ?Type clonazepam 0.5 mg tablet 0.5 mg PO HS 07/05/24 History flash glucose sensor (FreeStyle 07/05/24 07/05/24 His [employer] Jon 2 Sensor kit) insulin lispro 100 unit/mL 100 unit subcut PRN 5 07/05/24 History subcutaneous pen (Humalog KwikPen (U-100) Insulin) insulin pump cart,cont inf,BT 07/05/24 07/05/24 Histo ry (Omnipod Dash Pods (Gen 4) subcutaneous cartridge) sertraline 50 mg tablet 50 mg PO QDAY 07/05/2407/05 History Allergies Allergy/AdvReac Type Severity Reaction Status Date / Time NKA* Allergy Uncoded 12/19/15 15:17 Exam Vital Signs Temp Pulse Resp BP Pulse Ox O2 Del Method O2 Flow Rate 97.7 F 84 18 122/79 96 Room Air 2 07/05/24 16:00 07/05/24 16:07/05/24 16:07/05/24 16:00 07/05/24 16:00 07/05/24 16:00 07/05/24 06:49 Constitutional Comments: Alert oriented Routine Respiratory Exam Comments: Normal to auscultation Routine Abdominal Exam Comments: Soft nontender Results Labs 07/05/24 00:13 07/05/24 00:13 Labs: Short CBC 07/05/24 Range/Units 00:13 WBC 14.5 H (3.6-11.0) Thou/mm3 Hgb 13.3 (12.0-16.0) g/dL Hct 36.4 (36.0-46.0) % Plt Count 367 (140-440) Thou/mm3 BMP 07/05/24 00:13 Sodium 140 Potassium 3.7 Chloride 106 Carbon Dioxide 20.5 BUN 11 Creatinine 0.8 Glucose 270 H Calcium 9.5 Liver Function 07/05/24 Range/Units 00:13 Total Bilirubin 1.0 (0.3-1.2) mg/dL AST 29 (0-34) U/L ALT 29 (10-49) U/L Alkaline Phosphatase 69 (46-116) U/L Albumin 4.7 (3.5-5.0) gm/dL Urine 07/05/24 Range/Units 06:25 Urine Color Lt-Yellow (Lt Yel-Yel) Urine Clarity Clear (Clear/Hazy) Urine pH 7.0 (5.0-7.0) Ur Specific [place] 1.019 (1.001-1.035) Urine Protein Negative (Neg - Trace) Urine Glucose (UA) 4+ A (Negative) ABG Interpretation ABG results: 07/05/24 00:13 VBG pH 7.57 VBG pCO2 22 L VBG pO2 49 VBG Base Excess 1 Assessment and Plan Additional Assessment & Plan Additional Plan: # Coffee-ground hematemesis # Nausea vomiting # Abnormal CT scan of the abdomen and pelvis Plan Clear liquid diet if patient can tolerate that N.p.o. tomorrow at 10 AM Consent obtained for fiberoptic esophagogastroduodenoscopy with possible biopsy possible therapeutic intervention under intravenous moderate sedation scheduled for tomorrow afternoon Abnormal CT scan showing picture of colitis Most likely infectious etiology and does not appear to be a case of inflammatory bowel disease Thank you very much for the opportunity to participate in the care of this patient
[2024-07-05] MEDS: clonazePAM 0.5 MG TABLET PO (21:02)
[2024-07-06] VITALS (14 sets, daily range): BP systolic 106–165; BP diastolic 51–95; PULSE 59–98; RESP 14–23; TEMP 36.4–37.5; O2SAT 94–100
[2024-07-06] MEDS: INSULIN LISPRO (AdmeLOG) 1 UNIT/0.01 ML UNIT SC ×3 (00:01→11:03)
[2024-07-06] MEDS: PANTOPRAZOLE/NS 80MG IV PREMIX 80 MG/100 ML BAG 10 MG IV ×3 (02:13→21:54)
[2024-07-06 05:22] LABS: Basophils # (Auto) 0.1 Thou/mm3 (0.0-0.2); Basophils % (Auto) 1 % (0-2.5); Eosinophils # (Auto) 0.1 Thou/mm3 (0.0-0.5); Eosinophils % (Auto) 0 % (0-10); Hematocrit 33.9 % (36.0-46.0); Hemoglobin 11.6 g/dL (12.0-16.0); Immature Granulocytes % (Auto) 0 % (0-0); Immature Granulocytes Auto 0.06 Thou/mm3 (0.00-0.00); Lymphocytes # (Auto) 3.2 Thou/mm3 (1.0-4.8); Lymphocytes % (Auto) 24 % (10-50); Mean Corpuscular HGB Conc 34.2 g/dl (31.0-37.0); Mean Corpuscular Hemoglobin 33.9 pg (25.0-35.0); Mean Corpuscular Volume 99 fL (80-100); Monocytes % (Auto) 7 % (0-12); Neutrophils # (Auto) 9.2 Thou/mm3 (1.8-7.7); Neutrophils % (Auto) 68 % (37-80); Nucleated Red Blood Cell % 0 /100 WBC (0); Platelet Count 218 Thou/mm3 (140-440); RDW Standard Deviation 45.9 fL (36.4-46.3); Red Blood Count 3.42 Miln/mm3 (4.00-5.20); White Blood Count 13.6 Thou/mm3 (3.6-11.0)
[2024-07-06] MEDS: INSULIN LISPRO (AdmeLOG) 1 UNIT/0.01 ML UNIT 3 UNIT SC (06:09)
[2024-07-06 06:15] LABS: Alanine Aminotransferase 21 U/L (10-49); Albumin, Serum 3.8 gm/dL (3.5-5.0); Albumin/Globulin Ratio 1.7 (1.2-2.2); Alkaline Phosphatase 57 U/L (46-116); Anion Gap 13 (7-16); Aspartate Amino Transferase 22 U/L (0-34); BUN/Creatinine Ratio 13 Ratio (12-20); Bilirubin,Total 1.3 mg/dL (0.3-1.2); Blood Urea Nitrogen 10 mg/dL (9-23); Calcium 8.2 mg/dL (8.3-10.6); Calcium (Corrected) 8.4 mg/dL (8.5-10.1); Carbon Dioxide 20.3 mMol/L (20.0-31.0); Chloride 106 mMol/L (98-107); Creatinine (Component) 0.8 mg/dL (0.6-1.3); Globulin 2.2 gm/dL (2.3-3.5); Glucose 277 mg/dL (74-106); Magnesium 1.9 mg/dL (1.6-2.6); Osmolality,Calculated 286 (275-295); Phosphorous 1.7 mg/dL (2.4-5.1); Potassium 4.4 mMol/L (3.4-5.1); Sodium 139 mMol/L (136-145); eGFR > 60 See Note
[2024-07-06] MEDS: SERTRALINE HCL 25 MG TABLET 50 MG PO (08:11)
[2024-07-06] MEDS: NAPH,KPH MBDB 1 PACKET (1.5 GM) PO (08:12)
[2024-07-06 08:29] LABS: Free T4 (Free Thyroxine) 1.12 ng/dL (0.89-1.76)
[2024-07-06] MEDS: INSULIN LISPRO (AdmeLOG) 1 UNIT/0.01 ML UNIT 4 UNIT SC (11:10)
--- NOTE | 2024-07-06 11:40 | PC.SS ---
Patient is alert/oriented. He was able to verify demographics. Patient is independent with ADL's. Patient resides with parents rn post partum and resides in [facility]. Patient was admitted for vomiting. Patient states once she is discharged she will wait a week and return to [facility]. Patient states they are planning an EGD later tonight. Patient pharmacy: [facility] [facility]. PCP: Dr. Obregon at [facility]. Patient's alt medical decision maker; Mother, Monika, . Family will provide transportation upon discharge. D/c plan: return home.
[2024-07-06 11:51] LABS: Hematocrit 34.7 % (36.0-46.0); Hemoglobin 12.3 g/dL (12.0-16.0)
--- NOTE | 2024-07-06 15:53 | ESPR_ITS ---
<Statement entered by Josh Lazar MD - 07/15/24 15:00> I reviewed above note and agree with findings and plans. I have also personally examined the patient with medicine team and went over assessment and plan with medical team including dietetic intern and resident physician. Documentation for date of: 07/06/24 Subjective Subjective Interval history: Patient seen today at the bedside found awake, alert, orientedx3. No overnight events reported. No active complaints at this time. Vital signs stable at this time. Currently tapering off phenobarbital as discharging patient on this medication, given his hx of alcohol abuse and previous admissions for alcohol will do more harm. Possible discharge in the next few days. Exam Vital Signs Temp Pulse Resp BP Pulse Ox O2 Del Method O2 Flow Rate 98.0 F 88 18 116/77 96 Room Air 2 07/06/24 15:42 07/06/24 15:42 07/06/24 15:42 07/06/24 15:42 07/06/24 15:42 07/06/24 15:42 07/05/24 06:49 Narrative Exam Physical Exam GENERAL: AAOx3, acute distress due to vomiting HEENT: Moist mucosa. Eyes open, symmetrical, & clear CARDIO: Heart RRR, no obvious murmurs PULM: No noted coughing/dyspnea CTA B/L, no R/W/R GI: Abdomen soft, nondistended, pain on palpation. BS+ SKIN/MSK/EXT: No wounds/rashes/edema/amputations, no pain on palpation. Pedal pulses present B/L NEURO: AAOx3, no focal neuro deficits, able to move all 4 extremities Objective Labs 07/06/24 11:09 07/06/24 04:25 Labs: Laboratory Results - last 24 hr 07/06/24 07/06/24 04:25 11:09 WBC 13.6 H RBC 3.42 L Hgb 11.6 L 12.3 Hct 33.9 L 34.7 L MCV 99 MCH 33.9 MCHC 34.2 RDW Std Deviation 45.9 Plt Count 218 D Neut % (Auto) 68 Lymph % (Auto) 24 [place] % (Auto) 7 Eos % (Auto) 0 Baso % (Auto) 1 Neut # (Auto) 9.2 H Lymph # (Auto) 3.2 [place] # (Auto) 1.0 H Eos # (Auto) 0.1 Baso # (Auto) 0.1 Immature Gran # (Auto) 0.06 H Absolute Nucleated RBC 0.00 Immature Gran % 0 Nucleated RBC % 0 Sodium 139 Potassium 4.4 D Chloride 106 Carbon Dioxide 20.3 Anion Gap 13 BUN 10 Creatinine 0.8 Estim Creat Clear Calc Not Performed. eGFR > 60 BUN/Creatinine Ratio 13 Glucose 277 H Calculated Osmolality 286 Calcium 8.2 L Corrected Calcium 8.4 L Phosphorus 1.7 L Magnesium 1.9 Total Bilirubin 1.3 H AST 22 ALT 21 Alkaline Phosphatase 57 Total Protein 6.0 Albumin 3.8 D Globulin 2.2 L Albumin/Globulin Ratio 1.7 TSH 5.70 H Free T4 1.12 ABG Interpretation ABG results: 07/05/24 00:13 VBG pH 7.57 VBG pCO2 22 L VBG pO2 49 VBG Base Excess 1 Quality Measures Quality Measures none Assessment & Plan Assessment Current Active Medications: Generic Name Dose Route Start Last Admin Trade Name Freq PRN Reason Stop Dose Admin Acetaminophen 650 mg 07/05/24 09:50 Acetaminophen 325 Mg Tablet PO 08/04/24 09:49 Q6H PRN Fever >99.5 Acetaminophen 1,000 mg 07/05/24 09:50 Acetaminophen 325 Mg Tablet PO 08/04/24 09:49 Q6H PRN PAIN SCALE 1-3 (mild Clonazepam 0.5 mg 07/05/24 21:00 07/05/24 21:02 Clonazepam 0.5 Mg Tablet PO 07/10/24 20:59 0.5 mg HS NASIR Administration Dextrose 25 ml 07/05/24 10:49 Dextrose 50%-Water Inj 50 Ml Syringe IV 08/04/24 10:48 Q15MIN PRN BG 50-70 responsive npo pt Dextrose 50 ml 07/05/24 10:49 Dextrose 50%-Water Inj 50 Ml Syringe IV 08/04/24 10:48 Q15MIN PRN BG <50 OR BG <70 & pt unresponsive Glucagon 1 mg 07/05/24 10:49 Glucagon Inj 1 Mg Vial IM Q15MIN PRN BG <70, and no IV access Pantoprazole Sodium 80 mg in 100 mls @ 10 mls/hr 07/05/24 14:15 07/06/24 02:13 Protonix/Ns 80mg Iv Premix IV 07/08/24 02:14 10 mls/hr Q10H NASIR Administration Promethazine HCl 25 mg/ Sodium 51 mls @ 2.5 mls/min 07/05/24 14:33 Chloride IV 08/04/24 14:32 Q6HR PRN NAUSEA OR VOMITING Insulin Glargine 10 unit 07/06/24 21:00 Insulin Glargine (Lantus) 5 Unit/0.05 Ml (Per 5 Units) SC 08/05/24 20:59 HS NASIR Insulin Human Lispro 0 unit 07/06/24 11:03 07/06/24 11:09 Insulin Lispro (Admelog) 1 Unit/0.01 Ml Unit SC 08/04/24 11:59 Not Given Q6HR NASIR Protocol Insulin Human Lispro 8 unit 07/06/24 17:00 Insulin Lispro (Admelog) 1 Unit/0.01 Ml Unit SC 08/05/24 16:59 ACHS NASIR Sertraline HCl 50 mg 07/06/24 09:00 07/06/24 08:11 Sertraline Hcl 25 Mg Tablet PO 08/05/24 08:59 50 mg DAILY NASIR Administration Plan 28-year-old female with past medical history of type 1 diabetes who presents to the ED with vomiting. Patient was admitted for intractable vomiting. #? Coffee-ground emesis #Intractable nausea and vomiting #?Cyclic vomiting syndrome Patient symptom onset was about 1 day ago, patient reports 1 episode of coffee- ground emesis followed by green bilious vomiting. Patient does use THC frequently possible etiology can include cyclic vomiting syndrome with possible tear due to continous retching Zomonty reglan did not work continues to vomit ? Benadryl + promethazine ? Scopolamine patch ? EGD today ? Monitor serial EKGs to monitor QTc prolongation ? Pantoprazole drip ? GI consulted, appreciate recommendations #Diabetes mellitus type 1 Last A1c: 8.2, per patient she uses 10-15 units of insulin a day ? lispro 8 ACHS ? glargine 10u HS ? SSI ? Hypoglycemia protocol in place #Polysubstance use patients utox is positive for cocaine and THC - consider medical social consultant #Bilateral ovarian follicular cysts, the largest on the left side 16 mm recommended to follow up with pelvic US - follow up as outpatient Health Maintenance: Disposition: MedSurg Fluids: none Feeding: CLD Thrombo prophylaxis: SCDs Gastric Ulcer prophylaxis: Pantoprazole CODE STATUS: Full code Case discussed with my attending Dr. Nagi Johnson MD PGY-1
--- NOTE | 2024-07-06 16:31 | PC.NURSE ---
FAMILY BROUGHT PATIENTS INSULIN PUMP REFILL. INSULIN PUMP NOW GIVING PATIENT INSULIN. WILL CONTINUE TO MONITOR PATIENT.
--- NOTE | 2024-07-06 19:25 | PC.NURSE ---
pt taken to EGD via gurney. Pt denies pain and nausea at this time. GCS 15 on room air. Denies shortness of breath, wheezing, or coughing. No dizziness reported. LBM 07/05/24. New IV 24g started in right forearm as left hand 20g infiltrated- pt arm swollen, red, and tender.
--- NOTE | 2024-07-06 20:30 | SUR.PHASEI ---
2022 To PACU awake and alert, following verbal commands no complaints no s/s of distress noted continue to monitor pt vital signs and status.
--- NOTE | 2024-07-06 21:05 | SUR.PHASEI ---
2024 Haleigh Cee RN Called report to Sony Madison RN. 2102 Transfer to room 371 in stable condition, no complaints, no s/s of distress noted, walked to her bed, bed in low position side rails up.
[2024-07-06] MEDS: clonazePAM 0.5 MG TABLET PO (21:54)
--- NOTE | 2024-07-06 23:00 | PC.NURSE ---
Dr Luis made aware of pt refusing Lantus and Lispro coverage with glucose 203 d/t pt having an insulin infusion pump currently administering, per pt, 1unit/hr humalog; no new orders received.
[2024-07-07] VITALS: BP 113/73; PULSE 78; RESP 16; TEMP 37.2; O2SAT 99
[2024-07-07 04:00] VITALS: BP 94/57; PULSE 73; RESP 15; TEMP 36.8; O2SAT 99
[2024-07-07 05:40] LABS: Basophils # (Auto) 0.1 Thou/mm3 (0.0-0.2); Basophils % (Auto) 1 % (0-2.5); Eosinophils # (Auto) 0.2 Thou/mm3 (0.0-0.5); Eosinophils % (Auto) 2 % (0-10); Hematocrit 34.6 % (36.0-46.0); Immature Granulocytes % (Auto) 0 % (0-0); Immature Granulocytes Auto 0.03 Thou/mm3 (0.00-0.00); Lymphocytes # (Auto) 3.6 Thou/mm3 (1.0-4.8); Lymphocytes % (Auto) 37 % (10-50); Mean Corpuscular HGB Conc 34.7 g/dl (31.0-37.0); Mean Corpuscular Volume 98 fL (80-100); Monocytes # (Auto) 0.7 Thou/mm3 (0.0-0.8); Monocytes % (Auto) 7 % (0-12); Neutrophils # (Auto) 5.1 Thou/mm3 (1.8-7.7); Neutrophils % (Auto) 53 % (37-80); Nucleated Red Blood Cell % 0 /100 WBC (0); Platelet Count 263 Thou/mm3 (140-440); RDW Standard Deviation 44.5 fL (36.4-46.3); Red Blood Count 3.53 Miln/mm3 (4.00-5.20); White Blood Count 9.8 Thou/mm3 (3.6-11.0)
[2024-07-07 06:20] LABS: Alanine Aminotransferase 21 U/L (10-49); Albumin, Serum 3.8 gm/dL (3.5-5.0); Albumin/Globulin Ratio 1.7 (1.2-2.2); Alkaline Phosphatase 54 U/L (46-116); Anion Gap 8 (7-16); Aspartate Amino Transferase 18 U/L (0-34); BUN/Creatinine Ratio 11 Ratio (12-20); Bilirubin,Total 0.9 mg/dL (0.3-1.2); Blood Urea Nitrogen 8 mg/dL (9-23); Calcium 8.7 mg/dL (8.3-10.6); Calcium (Corrected) 8.9 mg/dL (8.5-10.1); Carbon Dioxide 25.9 mMol/L (20.0-31.0); Chloride 105 mMol/L (98-107); Creatinine (Component) 0.7 mg/dL (0.6-1.3); Estimated Creatinine Clearance 134.3 mL/min (>60); Globulin 2.3 gm/dL (2.3-3.5); Glucose 183 mg/dL (74-106); Magnesium 1.8 mg/dL (1.6-2.6); Osmolality,Calculated 280 (275-295); Phosphorous 2.2 mg/dL (2.4-5.1); Potassium 3.9 mMol/L (3.4-5.1); Sodium 139 mMol/L (136-145); Total Protein 6.1 gm/dL (5.7-8.2); eGFR > 60 See Note
[2024-07-07 08:00] VITALS: BP 113/74; PULSE 83; RESP 17; TEMP 36.4; O2SAT 99
[2024-07-07] MEDS: SERTRALINE HCL 25 MG TABLET 50 MG PO (08:03)
[2024-07-07] MEDS: PANTOPRAZOLE/NS 80MG IV PREMIX 80 MG/100 ML BAG 10 MG IV (09:14)
--- NOTE | 2024-07-07 09:40 | ESDS_ITS ---
Planned Discharge Date 07/07/24 DS: Providers Provider Date of admission: 07/05/24 09:50 Primary care physician: Pat Obregon MD Admitting Provider: Josh Lazar MD Attending Provider on Admission: Josh Lazar MD Consults: 07/05/24 09:13 Consult to Gastroenterology Stat Comment: Consulting Provider: Alejandra Mae Attending Provider on DC: Josh Lazar MD Discharging Provider: Cisco Johnson MD Anticipated date of discharge: 07/07/24 DS: Diagnosis Problem List Completed Was Problem List Reviewed/Reconciled?: Yes Hospital Course Hospital Course Hospital course: 28-year-old female with past medical history of type 1 diabetes who presented to the ED due to intractable nausea and vomiting. Patient was admitted for intractable vomiting and coffee-ground emesis. During hospital stay patient was evaluated for DKA which was found to be negative, patient had GI workup with endoscopy which showed esophagitis and gastritis. Vomiting was controlled with promethazine along other antiemetics. At this time patient is medically stable for discharge. Patient should follow- up with her primary care physician within 1 week of discharge. Patient is counseled on abstaining from frequent THC and cocaine use. He had been prescribed pantoprazole 40 mg daily for gastritis. Should any symptoms recur or worsen patient is instructed to return to the ED. Problem list: #Esophagitis #Gastritis #Intractable nausea and vomiting #Diabetes mellitus type 1 #Polysubstance use #Bilateral ovarian follicular cyst Case discussed with my attending Dr. Nagi Johnson MD PGY-1 Status at Discharge Functional status at discharge: independent ambulation Overall status at discharge: patient is back to baseline Time Spent with Patient Time attestation: Total time spent providing and/or coordinating discharge services: Time spent: Greater than 30 minutes Exam Vital Signs Temp Pulse Resp BP Pulse Ox O2 Del Method O2 Flow Rate 97.5 F 83 17 113/74 99 Room Air 3 07/07/24 08:00 07/07/24 08:00 07/07/24 08:00 07/07/24 08:00 07/07/24 08:00 07/07/24 08:00 07/06/24 20:16 Narrative Exam Physical Exam GENERAL: NAD, AAOx3 HEENT: Moist mucosa. Eyes open, symmetrical, & clear CARDIO: Heart RRR, no obvious murmurs PULM: No noted coughing/dyspnea CTA B/L, no R/W/R GI: Abdomen soft, nondistended, no pain on palpation. BSx4 SKIN/MSK/EXT: No wounds/rashes/edema/amputations, no pain on palpation. Pedal pulses present B/L NEURO: AAOx3, no focal neuro deficits, able to move all 4 extremities Discharge Plan Plan Patient Disposition: HOME (Self Care) Care Plan Goals: Follow up with primary care physician within 1 week of discharge Please abstain from frequent THC and cocaine use. Should any symptoms recur or worsen patient is instructed to return to the ED. Prescriptions/Referrals Prescriptions/Med Rec: New pantoprazole 40 mg tablet,delayed release (DR/EC) 40 mg PO QDAY Qty: 30 0RF Continued clonazepam 0.5 mg tablet 0.5 mg PO HS Patient Comments: TAKE 1 TABLET BY MOUTH NIGHTLY AT BEDTIME sertraline 50 mg tablet 50 mg PO QDAY Patient Comments: TAKE 1 TABLET BY MOUTH EVERY DAY FOR 30 DAYS (DME) FreeStyle Jon 2 Sensor Kit Patient Comments: DIRECTED SUBCUTANEOUSLY EVERY 14 DAYS 90 DAYS (DME) Omnipod Dash Pods (Gen 4) Cartridge SUBCUT Patient Comments: REPLACE EVERY 72 HOURS insulin lispro [Humalog KwikPen Insulin] 100 unit/mL insulin pen 100 unit subcut PRN Patient Comments: PLEASE SEE ATTACHED FOR DETAILED DIRECTIONS Referrals: Pat Obregon MD [Primary Care Provider] - Patient/Caregiver Discharge Instructions Discharge Activity: activity as tolerated Other Discharge Diet Instructions: diet as preadmission Education Materials: Esophagitis, Understanding Gastritis, Diabetes: Living You r Life, Diabetes Carbs Fats Protein Print Language: Ukrainian Stand Alone Forms: Dorothy Award Info., Patient Portal Info Letter Discharge Order Discharge Orders: Discharge (Routine); Ordered 07/07/24 Ordered By: Cisco Johnson Quality Discharge Quality Measures VTE prophylaxis
--- NOTE | 2024-07-07 11:53 | PC.NURSE ---
Discharge needs met, patient left with family in stable condition, with all belongings.
--- NOTE | 2024-07-07 23:00 | PD.IMPROG ---
Documentation for date of: 07/07/24 Subjective Subjective Interval history: Late entry for the note Hemoglobin hematocrit 12.1 and 34.6 Case discussed with internal medicine team Okay to discharge patient home to be followed by the PCP Exam Vital Signs Temp Pulse Resp BP Pulse Ox O2 Del Method O2 Flow Rate 97.5 F 83 17 113/74 99 Room Air 3 07/07/24 08:00 07/07/24 08:00 07/07/24 08:00 07/07/24 08:00 07/07/24 08:00 07/07/24 08:00 07/06/24 20:16 Objective Labs 07/07/24 05:09 07/07/24 05:09 Labs: Laboratory Results - last 24 hr 07/07/24 05:09 WBC 9.8 RBC 3.53 L Hgb 12.0 Hct 34.6 L MCV 98 MCH 34.0 MCHC 34.7 RDW Std Deviation 44.5 Plt Count 263 D Neut % (Auto) 53 Lymph % (Auto) 37 Branch % (Auto) 7 Eos % (Auto) 2 Baso % (Auto) 1 Neut # (Auto) 5.1 Lymph # (Auto) 3.6 Branch # (Auto) 0.7 Eos # (Auto) 0.2 Baso # (Auto) 0.1 Immature Gran # (Auto) 0.03 H Absolute Nucleated RBC 0.00 Immature Gran % 0 Nucleated RBC % 0 Sodium 139 Potassium 3.9 D Chloride 105 Carbon Dioxide 25.9 Anion Gap 8 BUN 8 L Creatinine 0.7 Estim Creat Clear Calc 134.3 eGFR > 60 BUN/Creatinine Ratio 11 L Glucose 183 H D Calculated Osmolality 280 Calcium 8.7 Corrected Calcium 8.9 Phosphorus 2.2 L Magnesium 1.8 Total Bilirubin 0.9 AST 18 ALT 21 Alkaline Phosphatase 54 Total Protein 6.1 Albumin 3.8 Globulin 2.3 Albumin/Globulin Ratio 1.7 Impressions Impression: Gastritis as a cause of hematemesis Stable hemoglobin hematocrit Plan Okay to discharge patient home to be followed by the PCP ABG Interpretation ABG results: 07/05/24 00:13 VBG pH 7.57 VBG pCO2 22 L VBG pO2 49 VBG Base Excess 1 Assessment & Plan A&P Narrative # Coffee-ground hematemesis # Nausea vomiting # Abnormal CT scan of the abdomen and pelvis Plan Clear liquid diet if patient can tolerate that N.p.o. tomorrow at 10 AM Consent obtained for fiberoptic esophagogastroduodenoscopy with possible biopsy possible therapeutic intervention under intravenous moderate sedation scheduled for tomorrow afternoon Abnormal CT scan showing picture of colitis Most likely infectious etiology and does not appear to be a case of inflammatory bowel disease Thank you very much for the opportunity to participate in the care of this patient Time Spent With Patient Time: Total time spent is greater than 50% in coordination of care (as documented) at patient's floor/unit and/or counseling patient:
== END 2024-07-07 11:43 | disposition home or self-care (01) | DRG 241 ==
LOC: SERX 07-05 09:42 → SERHOLD 07-05 10:10 → S3SX 07-05 13:40
PROVIDERS: Emergency Medicine; Physician Assistant; Specialist; Student in an Organized Health Care Education/Training Program; Admitting Provider Internal Medicine; Emergency Provider Emergency Medicine; PCP Internal Medicine; Visit Provider Internal Medicine
PROC: 0DJ08ZZ Inspection of Upper Intestinal Tract, Via Natural or Artificial Opening Endoscopic (ICD-10-PCS; CPT 43239; principal; 2024-07-06 20:30)
DX: K29.71 Gastritis, unspecified, with bleeding (principal); K20.91 Esophagitis, unspecified with bleeding; E10.9 Type 1 diabetes mellitus without complications; F17.200 Nicotine dependence, unspecified, uncomplicated; F12.90 Cannabis use, unspecified, uncomplicated; K52.9 Noninfective gastroenteritis and colitis, unspecified; F14.90 Cocaine use, unspecified, uncomplicated; N83.02 Follicular cyst of left ovary; N83.01 Follicular cyst of right ovary; Z96.41 Presence of insulin pump (external) (internal); Z79.899 Other long term (current) drug therapy
CPT/HCPCS: 36415; 71045; 74177; 80053; 80307; 81001; 81025; 82010; 82803; 83036; 83690; 83735; 84100; 84439; 84443; 84703; 85014; 85018; 85025; 93005; 96361; 96372; 96374; 96375; 99285; A4649; J1200; J1630; J1815; J2060; J2250; J2405; J2470; J2765; J3010; J3490; J7030; Q9967; A9270